=== PATIENT | male | born 1990 | race Caucasian/White ===

== ENCOUNTER 2018-04-02 16:48 | Emergency (ER) | payer OTHER ==
[2018-04-02] MEDS ORDERED: PROPARACAINE 0.5% 15 ML OPHT DROP OP ONE (17:48)
[2018-04-02] MEDS ORDERED: FLUORESCEIN SODIUM 1 MG STRIP OP ONE (17:48)
--- NOTE | 2018-04-02 18:05 | EDPHY ---
H & P Time Seen by Provider: 04/02/18 17:36 HPI/ROS: CHIEF COMPLAINT: Right eye irritation HISTORY OF PRESENT ILLNESS: 27-year-old immunocompetent male describes 2 days of itching crusting of the right eye. He describes antecedent, chronic since October 2017 lesions and dryness to his right eye after he was camping however he notes no progression of these lesions. He notes no exposure to high speed projectiles. No visual acuity changes. No photophobia. Denies GI complaints. Denies mucous membrane abnormalities. Denies skin abnormality. PRIMARY CARE PROVIDER: REVIEW OF SYSTEMS: 10 systems reviewed and are negative with exception of illness mentioned in the history of present illness PHYSICAL EXAM (Prior to examination, patient consented to physical exam, hands were washed and my usual and customary physical exam procedures followed) 1) GENERAL: Well-developed, well-nourished, alert and oriented. Appears to be in no acute distress. 2) HEAD: Normocephalic 3) HEENT: sclera anicteric 4) LUNGS: Breathing comfortably. [5) OCULAR EXAM: Visual Acuity: Right eye 20/25, left eye 20/30, both eyes 20/25 Pupils:equal round and reactive to light EOMI Lids: no edema or swelling, upper and lower lids were everted and no foreign bodies were visualized, no areas of increased fluorescein uptake. Skin: no proptosis, no periorbital erythema or swelling, no vesicles, no pain with extraocular movements. Conjunctivae: not injected, no discharge, negative Michelle test. Cornea: exam with fluorescein shows no areas of increased uptake, no ulceration , no abrasion, no dendrites. Anterior chamber:normal, no hyphema or hypopyon. Tonometric testing is 18 Smoking Status: Never smoked Constitutional: Initial Vital Signs Temperature (C) 36.8 C 04/02/18 17:07 Heart Rate 54 L 04/02/18 17:07 Respiratory Rate 16 04/02/18 17:07 Blood Pressure 124/73 H 04/02/18 17:07 O2 Sat (%) 96 04/02/18 17:07 O2 Delivery Mode Room Air Allergies/Adverse Reactions: No Known Allergies Allergy (Unverified 04/02/18 17:07) Home Medications: Medication Instructions Recorded Ofloxacin 0.3% [Ocuflox 0.3%] 2 drops EACHEYE QID #1 opht.btl 04/02/18 MDM/Departure - MDM Medications Given: Discontinued Medications Fluorescein Sodium (Bioglo) 1 mg OP EDNOW ONE Stop: 04/02/18 17:49 Last Admin: 04/02/18 17:54 Dose: 1 mg Proparacaine HCl (Alcaine 0.5%) 1 drops OP EDNOW ONE Stop: 04/02/18 17:49 Last Admin: 04/02/18 17:54 Dose: 1 btl ED Course/Re-evaluation: I think the patient's symptoms are more likely secondary to acute conjunctivitis. He does describe 5 months of right facial irritation however on exam he has no signs consistent with facial zoster or ophthalmic zoster. I do not think that initiation of antiviral therapy is indicated at this time. He does note for the past 5 months he has had intermittent eye irritation we discussed other possible etiologies of possible such as autoimmune disorder. Doubt infectious etiology. Doubt orbital cellulitis. Doubt periorbital cellulitis. Doubt ophthalmic zoster. He denies other systemic complaints. Plan will be discharge, recommend close follow up with on-call ophthalmology Dr. Fabian Cage. He feels comfortable with this plan. My usual and customary ophthalmological precautions instructions provided. I saw this patient independently based with whom I discussed case. - Depart Disposition: Home, Routine, Self-Care Clinical Impression: Conjunctivitis, right eye Qualifiers: Conjunctivitis type: acute Acute conjunctivitis type: bacterial Qualified Code( s): H10.31 - Unspecified acute conjunctivitis, right eye Condition: Good Instructions: Conjunctivitis (ED) Additional Instructions: Return to the ER if you develop change in vision, light sensitivity or any other symptoms that concern you Prescriptions: Ofloxacin 0.3% [Ocuflox 0.3%] 2 drops EACHEYE QID #1 opht.btl Referrals: Fabian Cage MD [Medical Doctor] - As per Instructions
[2018-04-02 18:30] VITALS: BP 124/78
== END 2018-04-02 18:30 | disposition home or self-care (01) ==
DX: H10.31 Unspecified acute conjunctivitis, right eye (principal)